=== PATIENT | male | born 1995 ===

== ENCOUNTER 2019-12-20 13:37 | Emergency (ER) | payer OTHER ==
[~2019-12-20] VITALS: Ht 175.3 cm; Wt 72.6 kg
[2019-12-20] MEDS ORDERED: GILTUSS TR TAB1 EACH PO (14:05)
[2019-12-20] MEDS ORDERED: OSEL75CA PO (18:24)
== END 2019-12-20 18:48 | disposition home or self-care (01) ==
LOC: ER 13:37
DX: J11.1 Influenza due to unidentified influenza virus with other respiratory manifestations (principal)